=== PATIENT | male | born 1950 | race Caucasian/White ===

== ENCOUNTER → 2022-05-01 | Day surgery (SDC) | payer OTHER ==
[~2022-05-01] VITALS: Ht 167.6 cm; Wt 101.2 kg
[~2022-05-01] MED LIST: OXYCODONE-APAP1 TAB PO; SYMBICORT 16010.2 GM INH
== END | disposition home or self-care (01) ==
LOC: FAS 06:54
DX: Z12.11 Encounter for screening for malignant neoplasm of colon (principal); D12.3 Benign neoplasm of transverse colon; D12.8 Benign neoplasm of rectum; K57.30 Diverticulosis of large intestine without perforation or abscess without bleeding; Z86.010 Personal history of colon polyps; Z86.16 Personal history of COVID-19; Z87.891 Personal history of nicotine dependence
CPT/HCPCS: J2704; J7120

== ENCOUNTER 2022-05-28 07:07 | Emergency (ER) | payer OTHER ==
[2022-05-28 08:19] LABS: CORONAVIRUS 2019 SARS-COV-2 NEGATIVE (NEGATIVE); INFLUENZA A NAA NEGATIVE (NEGATIVE)
[2022-05-28] MEDS ORDERED: MEDROL 4MG DOSEP4 MG PO (09:13)
== END 2022-05-28 09:40 | disposition home or self-care (01) ==
LOC: FER 07:07
PROVIDERS: Emergency Medicine
DX: J20.9 Acute bronchitis, unspecified (principal); Z86.16 Personal history of COVID-19; Z87.891 Personal history of nicotine dependence; Z20.822 Contact with and (suspected) exposure to COVID-19
CPT/HCPCS: 93005; U0002